=== PATIENT | male | born 1965 | race Native Hawaiian/Other Pacific Islander ===

== ENCOUNTER 2021-05-17 12:20 | Outpatient (CLI) | payer OTHER | END 2021-05-17 19:05 | disposition home or self-care (01) | LOC: RAD 12:20 | PROVIDERS: ATTEND Nurse Practitioner Family | DX: U07.1 COVID-19 (principal) ==

== ENCOUNTER 2021-05-19 11:30 | Outpatient (CLI) | payer OTHER | END 2021-05-19 20:12 | disposition home or self-care (01) | LOC: RAD 11:30 | PROVIDERS: ATTEND Nurse Practitioner Family | DX: U07.1 COVID-19 (principal) ==

== ENCOUNTER 2021-08-08 13:20 | Observation (INO) | payer OTHER ==
[~2021-08-08] VITALS: Ht 165.1 cm; Wt 70.8 kg
[2021-08-08 13:53] LABS: PLATELET COUNT 209 K/uL (142-355)
[2021-08-08 13:56] LABS: POTASSIUM 3.9 mmol/L (3.6-5.2)
[2021-08-08 17:49] LABS: PLATELET COUNT 202 K/uL (142-355)
[2021-08-08 18:16] LABS: PARTIAL THROMBOPLASTIN TIME 25.6 SECONDS (24.5-33.6)
[2021-08-08 18:33] LABS: POTASSIUM 4.1 mmol/L (3.6-5.2)
[2021-08-08 18:34] VITALS: BP 149/92; TEMP 98.7; Ht 165.1 cm; Wt 70.8 kg
[2021-08-08 18:49] VITALS: BP 140/88; TEMP 98.7
--- NOTE | 2021-08-08 18:51 | NUR ---
PT HAS 20 GA TO RIGHT FA X3 ATTEMPTS. IVF OF NS AT 100ML/HR INFUSING ORDERED. NO SWELLING OR REDNESS NOTED TO SITE. PT TOLERATED WELL.
--- NOTE | 2021-08-08 19:17 | NUR ---
INITIAL ASSESSMENT COMPLETE. PT PRESENTS FOR ASSESSMENT FOR C/O DIZZINESS AND ADMITTED FOR CHEST PAIN R/O ND. NO C/O PAIN AT THIS TIME. IV SITE STARTED TO RIGHT FA; 22 G. PT TOLERATED WELL. FLUIDS INFUSING WITH NO ISSUES. PT ALERT AND ORIENTED. ORIENTED TO ROOM AND CALL LIGHT SYSTEM. ADVISED TO CALL IF HE HAS ANY C/O PAIN OR CONCERNS. BRIEFLY DISCUSSED PLAN OF CARE. PT HAS URINAL AT BED SIDE. NAD NOTED. WILL CONTINUE TO MONITOR.
[2021-08-09] VITALS: BP 113/76; TEMP 97.4
[2021-08-09 04:00] VITALS: BP 104/71; TEMP 97.9
--- NOTE | 2021-08-09 06:34 | NUR ---
PT HAS RESTED THROUGH THE NIGHT WITH NO C/O PAIN/DISCOMFORT. NASAL SWAB DONE FOR COVID TEST AND TAKEN TO LAB. PT CONT WITH IV OF D51/2 NS WITH KCL 20 MEGS INFUSING TO RIGHT THUMB WITHOUT DIFFICULTY. NO S/S OF INFILTRATION. PT ALERT AND ORIENTED THIS A.M. REQUESTING WASH CLOTH TO WASH FACE. SAME GIVEN. CALL LIGHT IN EASY REACH.
[2021-08-09 08:00] VITALS: BP 133/87; TEMP 98.7
--- NOTE | 2021-08-09 08:31 | NUR ---
08/09/21 0800 SITTING UP IN BED EATING BREAKFAST REQUESTING EXTRA MORAN AND GRITS.BROUGHT EXTRA GRITS TO ROOM, PT REQUESTS MORE MORAN EDUCATED ON LOW SODIUN DIET.NO TURKEY MORAN AVAILABLE THIS AM.NO C/O PAIN DURING THE NIGHT AND THIS AM.CALL LIGHT WITHIN REACH.CC
[2021-08-09 12:00] VITALS: BP 134/80; TEMP 97.8
--- NOTE | 2021-08-09 14:20 | NUR ---
DR RAMOS CALLED FOR CARDIAC ENZYMES RESULTS. INFORMED HER 3RD SET WAS NOT DUE UNITL 1615. NEW ORDERS REC'D TO DC CE AT 1615 AND OBTAIN THEM NOW. NEW ORDERS PLACED AND LAB NOTIFIED.
--- NOTE | 2021-08-09 14:47 | NUR ---
DR RAMOS CALLED AND ASKED IF PT WAS PAIN FREE. I WENT AND SPOKE TO KATHIA THE PRIMARY NURES AND PT HAS DENEID ANY CHEST PAIN OR SHORTNESS OF BREATH AT HIST TIME.
--- NOTE | 2021-08-09 15:29 | NUR ---
08/09/21 1525 TROPONIN 59.20 REPORTED TO ,STATED SHE WILL CALL BACK IN A LITTLE WHILE NO ORDERS AT THIS TIME.CC
[2021-08-09 16:00] VITALS: BP 130/81; TEMP 98.5
--- NOTE | 2021-08-09 19:39 | NUR ---
PATIENT GIVEN DISCHARGE INSTRUCTIONS WITH VERBAL UNDERSTANDING NOTED. NO ACUTE DISTRESS NOTED OR VOICED AT TIME OF ADMISSION.
--- NOTE | 2021-08-09 20:05 | NUR ---
IV SITE DC'D, CATHETER INTACT, PRESSURE AND BANDAID APPLIED. PATIENT TOLERATED WELL. PATIENT DISCHARGED HOME AT THIS TIME WITH VERBAL AND WRITTEN DC INSTRUCTIONS AND PATIENT VERBALIZES UNDERSTANDING OF ALL INSTRUCTIONS GIVEN AND DENIES ANY QUESTIONS AT THIS TIME. NO ACUTE DISTRESS NOTED AND NO COMPLAINTS VOICED AT THIS TIME. PATIENT STATES "I FEEL FINE".
== END 2021-08-09 20:05 | disposition home or self-care (01) ==
LOC: RAD 13:20 → MED/SURG 16:29
PROVIDERS: Nurse Practitioner Family; ADMIT Family Medicine; ATTEND Family Medicine
DX: R07.89 Other chest pain (principal); Z20.828 Contact with and (suspected) exposure to other viral communicable diseases; E11.9 Type 2 diabetes mellitus without complications; E78.49 Other hyperlipidemia; M10.9 Gout, unspecified; R06.02 Shortness of breath
CPT/HCPCS: 36415; 80048; 80053; 81000; 82550; 82553; 82728; 83880; 84484; 85027; 85379; 85610; 85730; 86140; 87635; 93005; 99220; G0378; J1650; U0003

== ENCOUNTER 2021-08-27 20:35 | Emergency (ER) | payer OTHER ==
[~2021-08-27] VITALS: Ht 165.1 cm; Wt 68.9 kg
[2021-08-27 21:01] LABS: PLATELET COUNT 200 K/uL (142-355)
[2021-08-27 21:14] LABS: POTASSIUM 4.3 mmol/L (3.6-5.2)
[2021-08-27 21:18] LABS: PARTIAL THROMBOPLASTIN TIME 26.1 SECONDS (24.5-33.6)
[2021-08-27 22:00] VITALS: BP 136/88; TEMP 98.6
== END 2021-08-27 22:00 | disposition home or self-care (01) ==
LOC: EDBD 20:35 → ED 20:35
PROVIDERS: Emergency Medicine
DX: R42 Dizziness and giddiness (principal); R03.0 Elevated blood-pressure reading, without diagnosis of hypertension
CPT/HCPCS: 80053; 83880; 84484; 85027; 85379; 85610; 85730; 93005; 99283

== ENCOUNTER 2021-08-31 08:25 | Outpatient (CLI) | payer OTHER | END 2021-08-31 21:18 | disposition home or self-care (01) | LOC: NM 08:25 | PROVIDERS: ATTEND Family Medicine | DX: R42 Dizziness and giddiness (principal); I10 Essential (primary) hypertension; R07.9 Chest pain, unspecified | CPT/HCPCS: A9500 ==